=== PATIENT | female | born 1985 | race Caucasian/White ===

== ENCOUNTER 2016-11-27 21:41 | Emergency (ER) ==
[2016-11-27 21:50] VITALS: BP 121/90; TEMP 98.8; BMI 17.9
[2016-11-27] MEDS ORDERED: ZOFRAN 4 MG/2 ML IVP STA (21:53)
[2016-11-27] MEDS ORDERED: SODIUM CHLORIDE 1,000 ML IV STA (21:53)
[2016-11-27] MEDS ORDERED: MORPHINE 2 MG/ML SYRINGE IVP STA (21:54)
[2016-11-27 22:08] LABS: BASOPHILS # (AUTO) 0.1 K/uL (0-0.2); BASOPHILS % (AUTO) 0.7 % (0.0-3.0); EOSINOPHILS % (AUTO) 0.3 % (0.0-7.0); HEMATOCRIT 39.9 % (37.0-47.0); HEMOGLOBIN 14.4 g/dl (12.0-16.0); IMMATURE GRANULOCYTE % (AUTO) 0.5 % (0.0-5.0); LYMPHOCYTES # (AUTO) 2.7 K/uL (0.60-3.4); LYMPHOCYTES % (AUTO) 36.2 (10.0-50.0); MEAN CORPUSCULAR HEMOGLOBIN 44.2 pg (27.0-31.0); MEAN CORPUSCULAR HGB CONC 36.1 (31.8-35.4); MEAN CORPUSCULAR VOLUME 122.4 fl (81.0-99.0); MONOCYTES # (AUTO) 0.4 K/uL (0.4-2.0); MONOCYTES % (AUTO) 5.6 (0-10); NEUTROPHILS # (AUTO) 4.3 K/ul (2.0-6.9); NEUTROPHILS % (AUTO) 56.7; PLATELET COUNT 238 10^3/uL (140-440); RED BLOOD COUNT 3.26 10^6/ul (4.20-5.40); WHITE BLOOD COUNT 7.49 K/ul (4.6-10.2)
[2016-11-27 22:36] LABS: ALANINE AMINOTRANSFERASE 14 U/L (12-78); ALBUMIN 4.8 g/dL (3.4-5.0); ALBUMIN/GLOBULIN RATIO 1.37; ALKALINE PHOSPHATASE 58 U/L (42-98); AMYLASE 57 U/L (25-115); ANION GAP 21.2; ASPARTATE AMINO TRANSFERASE 34 U/L (15-37); BILIRUBIN,TOTAL 1.61 mg/dL (0.00-1.20); BLOOD UREA NITROGEN 21 mg/dL (7-18); BUN/CREATININE RATIO 19.62; CALCIUM 10.1 mg/dL (8.2-10.2); CARBON DIOXIDE 27 mmol/L (21-32); CHLORIDE 97 mmol/L (98-107); CREATINE KINASE 57 U/L; CREATININE 1.07 mg/dL (0.60-1.30); GLUCOSE 87 mg/dL (70-110); LIPASE 64 U/L (8-78); POTASSIUM 5.2 mmol/L (3.5-5.10); SODIUM 140 mmol/L (136-145); TOTAL PROTEIN 8.3 g/dL (6.4-8.2)
[2016-11-27 22:39] LABS: FLU INTERNAL QC INTERNAL QC VALID; RAPID FLU A NEGATIVE (NEGATIVE); RAPID FLU B NEGATIVE (NEGATIVE)
[2016-11-27 22:40] LABS: ERYTHROCYTE SEDIMENTATION RATE 11 mm/hr (0-20); ESR INTERNAL QC INTERNAL QC VALID; SERUM PREGNANCY INTERNAL QC INTERNAL QC VALID
[2016-11-27 23:16] LABS: BILIRUBIN,URINE 3+ (NEGATIVE); KETONES,URINE 3+ (NEGATIVE); LEUKOCYTE ESTERASE ,URINE Negative (NEGATIVE); NITRITE,URINE Negative (NEGATIVE); PH,URINE 5.5 (5-9); PROTEIN,URINE 1+ (NEGATIVE); URINE, BLOOD Trace-intact (NEGATIVE)
--- NOTE | 2016-11-27 23:18 | CT ---
EXAM: CT of the abdomen and pelvis without IV contrast. HISTORY: Abdominal pain and vomiting. PROCEDURE: Contiguous axial CT images of the abdomen and pelvis without contrast with coronal and s agittal reformats. FINDINGS: The liver, gallbladder, pancreas, spleen and adrenal glands are normal in appearance. Th ere is a fluid density cyst in the right kidney. There is a 2 mm nonobstructive calcification in th e left kidney. The abdominal aorta is normal in appearance. The appendix is not visualized. There is a nonspecific bowel gas pattern. No bowel obstruction. No free fluid or free air in the abdomen or pelvis. The bladder is minimally filled with no abnormality identified. Uterus is unremarkable . The bony structures and soft tissues are unremarkable. Impression: Nonspecific nonobstructive bowel gas pattern. Nonobstructive left nephrolithiasis. Simple right renal cyst.
[2016-11-27 23:21] LABS: ADD URINE MICROSCOPIC YES; BACTERIA,URINE TRACE (NOT PRESENT)
[2016-11-28] MEDS ORDERED: DILAUDID 1 MG/ML SYRINGE IVP STA (01:37)
[2016-11-28] MEDS ORDERED: SODIUM CHLORIDE 1,000 ML IV STA ×2 (01:37→01:43)
--- NOTE | 2016-11-28 02:58 | ED.PDOC ---
[id number]: i m hurting and throwijg iup Time Seen by Physician: 21:45 Information Source: Patient Exam Limitations: No limitations Primary Care Provider: TERRY GAYTAN Nursing and Triage Documentation Reviewed and Agree: Yes GI Complaint Exam - Abdominal Pain Complaint/Exam Onset: Gradual Duration: 4 weeks Symptoms Are: Still present Timing: Intermittent Initial Severity: Mild Current Severity: Moderate Location of Pain: Discrete Character: Reports: Dull, Aching Aggravating: Reports: None Alleviating: Reports: Spontaneous resolution Associated Signs and Symptoms: Reports: Nausea, Vomiting Patient Rh Status: Unknown Abdominal Findings: Present: None Differential Diagnoses: Constipation, Diverticulitis, Gastroenteritis, Pancreatitis Quality Indicator For Non-Traumatic Chest Pain/Syncope: EKG Performed Review of Systems - Review Of Systems Constitutional: Reports: No symptoms Eyes: Reports: No symptoms Ears, Nose, Mouth, Throat: Reports: No symptoms Respiratory: Reports: No symptoms Cardiac: Reports: No symptoms GI: Reports: Abdominal pain, Nausea, Vomiting : Reports: No symptoms Musculoskeletal: Reports: No symptoms Skin: Reports: No symptoms Neurological: Reports: No symptoms Endocrine: Reports: No symptoms Hematologic/Lymphatic: Reports: No symptoms All Other Systems: Reviewed and Negative Past Medical History - Past Medical History 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) Endocrine: Reports: None Cardiovascular: Reports: None Respiratory: Reports: None Hematological: Reports: None Gastrointestinal: Reports: None Genitourinary: Reports: None Neuro/Psych: Reports: None Musculoskeletal: Reports: None Cancer: Reports: None Last Menstrual Period: UNKNOWN - Surgical History General Surgical History: Reports: Unknown - Family History Family History: Reports: Unknown - Social History Smoking Status: Never smoker Hx Substance Use: No Alcohol Screening: None - Immunizations Tetanus Shot up to Date: No Physical Exam - Physical Exam Appearance: Well-appearing, No pain distress, Well-nourished Pain Distress: Mild Eyes: SHA, EOMI, Conjunctiva clear ENT: Ears normal, Nose normal, Oropharynx normal Neck: Supple Respiratory: Airway patent, Breath sounds clear, Breath sounds equal, Respirations nonlabored Cardiovascular: RRR, Pulses normal, No rub, No murmur GI/: Soft, Tender Musculoskeletal: Normal strength, ROM intact, No edema, No calf tenderness Skin: Warm, Dry, Normal color Neurological: Sensation intact, Motor intact, Reflexes intact, Cranial nerves intact, Alert, Oriented Psychiatric: Affect appropriate, Mood appropriate Interpretation - Radiology Interpretation Radiology Interpretation By: Radiologist Radiology Results: Negative Exam Interpreted: CT Scan Re-Evaluation - Re-Evaluation Time of Re-Evaluation: 02:58 Status: Improved Vital Signs Stable: Yes Pain Level: 0 Appearance: NAD Lungs: Clear Skin: Warm and Dry Neuro: Alert and Oriented X3 CV: RRR Critical Care Note - Critical Care Note Total Time (mins): 0 Course - Course Hematology/Chemistry: 11/27/16 22:02 11/27/16 22:02 Orders, Labs, Meds: Lab Review 11/27/16 11/27/16 11/27/16 22:02 22:10 23:10 WBC 7.49 RBC 3.26 L Hgb 14.4 Hct 39.9 MCV 122.4 H MCH 44.2 H MCHC 36.1 H RDW Coeff of Estephania 13.1 Plt Count 238 Immature Gran % (Auto) 0.5 Neut % (Auto) 56.7 Lymph % (Auto) 36.2 [place] % (Auto) 5.6 Eos % (Auto) 0.3 Baso % (Auto) 0.7 Immature Gran # (Auto) 0.0 Neut # 4.3 Lymph # 2.7 [place] # 0.4 Eos # 0.0 Baso # 0.1 ESR 11 D-Dimer 0.28 Sodium 140 Potassium 5.2 H Chloride 97 L Carbon Dioxide 27 Anion Gap 21.2 BUN 21 H Creatinine 1.07 Estimated GFR (MDRD) 61.00 BUN/Creatinine Ratio 19.62 Glucose 87 Calcium 10.1 Total Bilirubin 1.61 H AST 34 ALT 14 Alkaline Phosphatase 58 Total Creatine Kinase 57 Troponin I < 0.0100 Total Protein 8.3 H Albumin 4.8 Globulin 3.5 Albumin/Globulin Ratio 1.37 Amylase 57 Lipase 64 Serum , Qual Negative Urine Color Yellow Urine Clarity Slightly Urine pH 5.5 Ur Specific Lohn 1.025 Urine Protein 1+ Urine Glucose (UA) Negative Urine Ketones 3+ Urine Blood Trace-intact Urine Nitrite Negative Urine Bilirubin 3+ Urine Urobilinogen 1.0 Ur Leukocyte Esterase Negative Urine Microscopic RBC 2-5 Urine Microscopic WBC 2-5 Ur Squamous Epith Cells 5-10 Urine Bacteria Trace Urine Mucus 1+ Influenza A (Rapid) Negative Influenza B (Rapid) Negative Orders Category Date Time Status EKG-(ED ONLY) Stat CARDIO 11/27/16 21:52 Completed IV [ED IV/MEDIPORT/POWERPORT] .ONCE EMERGENCY 11/27/16 21:53 Active AMYLASE Stat LAB 11/27/16 22:02 Completed CBC W/ AUTO DIFF Stat LAB 11/27/16 22:02 Completed COMPREHENSIVE METABOLIC PANEL Stat LAB 11/27/16 22:02 Completed CREATINE KINASE Stat LAB 11/27/16 22:02 Completed D-DIMER Stat LAB 11/27/16 22:02 Completed ESR Stat LAB 11/27/16 22:02 Completed LIPASE Stat LAB 11/27/16 22:02 Completed MOLECULAR GROUP A STREP Stat LAB 11/27/16 22:10 Completed RAPID FLU A/B Stat LAB 11/27/16 22:10 Completed SERUM Stat LAB 11/27/16 22:02 Completed STREP SCREEN Stat LAB 11/27/16 22:10 Completed TROPONIN I Stat LAB 11/27/16 22:02 Completed URINALYSIS C & S IF INDICATED Stat LAB 11/27/16 23:10 Completed 0.9 % Sodium Chloride [Saline Flush] MEDS 11/27/16 21:53 Discontinued 1 syr IVF PRN PRN Hydromorphone HCl [Dilaudid 1 mg/ml Syringe] MEDS 11/28/16 01:37 Discontinued 0.5 mg IVP ONCE STA Morphine Sulfate [Morphine 2 mg/ml Syringe] MEDS 11/27/16 21:54 Discontinued 2 mg IVP ONCE STA Ondansetron HCl/Pf [Zofran 4 mg/2 ml] MEDS 11/27/16 21:53 Discontinued 4 mg IVP ONCE STA Sodium Chloride 0.9% [Sodium Chloride] 1,000 ml MEDS 11/28/16 01:43 Discontinued IV 100 mls/hr Sodium Chloride 0.9% [Sodium Chloride] 1,000 ml MEDS 11/27/16 21:[address] ABDOMEN/PELVIS WO CONTRAST Stat RADS 11/27/16 21:54 Completed Medications Discontinued Medications Generic Name Dose Route Start Last Admin Trade Name Freq PRN Reason Stop Dose Admin Hydromorphone HCl 0.5 mg 11/28/16 01:37 11/28/16 01:46 Dilaudid 1 Mg/Ml Syringe IVP 11/28/16 01:38 0.5 mg ONCE STA Administration Sodium Chloride 1,000 mls @ 1,000 mls/hr 11/27/16 21:53 11/27/16 22:06 Sodium Chloride IV 11/27/16 22:52 1,000 mls/hr BOLUS STA Administration Sodium Chloride 1,000 mls @ 100 mls/hr 11/28/16 01:43 11/28/16 01:45 Sodium Chloride IV 11/28/16 11:42 100 mls/hr .Q10H STA Administration Morphine Sulfate 2 mg 11/27/16 21:54 11/27/16 22:14 Morphine 2 Mg/Ml Syringe IVP 11/27/16 21:55 2 mg ONCE STA Administration Ondansetron HCl 4 mg 11/27/16 21:53 11/27/16 22:13 Zofran 4 Mg/2 Ml IVP 11/27/16 21:54 4 mg ONCE STA Administration Sodium Chloride 1 syr 11/27/16 21:53 11/28/16 01:51 Saline Flush IVF 1 syr PRN PRN Administration To flush IV Vital Signs: Temp Pulse Resp BP Pulse Ox 11/27/16 21:42 98.8 F 77 18 121/90 97 Departure - Departure Time of Disposition: 02:58 Disposition: HOME SELF-CARE Discharge Problem: Abdominal pain Qualifiers: Abdominal location: epigastric Qualifier Code: (R10.13) Epigastric pain Instructions: Abdominal Pain (ED) Condition: Good Pt referred to PMD for follow-up: Yes Additional Instructions: low fat diet--talk to your pcp tomorrow about gtting gb xrays Allergies/Adverse Reactions: Allergies Sulfa (Sulfonamide Antibiotics) Adverse Reaction (Verified 11/27/16 21:50) Itching Home Medications: Ambulatory Orders Calcium Carbonate/Vitamin D3 [Calcium 600 + Vit D 400 Tablet] 1 each PO DAILY Ferrous Sulfate [Iron] 325 mg PO DAILY PRN 05/13/13 Magnesium 500 mg PO DAILY 05/13/13 Cholecalciferol (Vitamin D3) [Vitamin D] 1,000 unit PO DAILY 06/23/14 Disposition Discussed With: Patient, Family
== END 2016-11-28 03:09 | disposition home or self-care (01) ==
LOC: ED 21:41
DX: R10.13 Epigastric pain (principal); R11.2 Nausea with vomiting, unspecified
CPT/HCPCS: 36415; 80053; 81001; 82150; 82550; 83690; 84484; 84703; 85025; 85379; 85651; 87651; 87804; 87880; 93005; 93010; 96361; 96374; 96375; 99283

== ENCOUNTER 2016-11-29 07:08 | Outpatient (CLI) ==
[2016-11-29 07:34] LABS: BILIRUBIN,URINE Negative (NEGATIVE); KETONES,URINE Trace (NEGATIVE); LEUKOCYTE ESTERASE ,URINE Negative (NEGATIVE); NITRITE,URINE Negative (NEGATIVE); PH,URINE 5.5 (5-9); PROTEIN,URINE Negative (NEGATIVE); URINE, BLOOD 1+ (NEGATIVE)
[2016-11-29 08:17] LABS: ADD URINE MICROSCOPIC YES
--- NOTE | 2016-11-29 08:28 | US ---
EXAM: ULTRASOUND ABDOMEN LIMITED HISTORY: Abdominal pain FINDINGS: Ultrasound abdomen, limited. Liver size measured 10.2 cm, within normal limits. The live r parenchyma demonstrated normal sonographic appearance without evidence of intrahepatic biliary dil atation or focal lesion. Patent and hepatopedal portal vein. A gallbladder is present. No evidence of gallbladder stones or sludge. Gallbladder wall thickness is normal at 0.29 cm. Common bile duct was not seen. Visualized pancreas within normal limits. No ascites. IMPRESSION: Common bile duct not identified. No gross gallbladder pathology.
== END 2016-11-29 07:09 | disposition home or self-care (01) ==
LOC: RAD 07:08
PROVIDERS: ATTEND Nurse Practitioner Family
DX: R10.9 Unspecified abdominal pain (principal); R11.2 Nausea with vomiting, unspecified
CPT/HCPCS: 81001

== ENCOUNTER 2017-03-04 15:55 | Inpatient (IN) ==
[2017-03-04] MEDS ORDERED: ZOFRAN 4 MG/2 ML IM STA (16:41)
[2017-03-04] MEDS ORDERED: DEMEROL 25 MG/ML SYRINGE IM STA (16:41)
[2017-03-04 16:55] LABS: BASOPHILS # (AUTO) 0.1 K/uL (0-0.2); BASOPHILS % (AUTO) 1.1 % (0.0-3.0); EOSINOPHILS # (AUTO) 0.1 K/ul (0.0-0.7); EOSINOPHILS % (AUTO) 1.7 % (0.0-7.0); HEMATOCRIT 38.4 % (37.0-47.0); HEMOGLOBIN 13.5 g/dl (12.0-16.0); IMMATURE GRANULOCYTE % (AUTO) 0.5 % (0.0-5.0); LYMPHOCYTES # (AUTO) 1.8 K/uL (0.60-3.4); LYMPHOCYTES % (AUTO) 26.9 (10.0-50.0); MEAN CORPUSCULAR HEMOGLOBIN 42.5 pg (27.0-31.0); MEAN CORPUSCULAR HGB CONC 35.2 (31.8-35.4); MEAN CORPUSCULAR VOLUME 120.8 fl (81.0-99.0); MONOCYTES # (AUTO) 0.3 K/uL (0.4-2.0); MONOCYTES % (AUTO) 4.6 (0-10); NEUTROPHILS # (AUTO) 4.3 K/ul (2.0-6.9); NEUTROPHILS % (AUTO) 65.2; PLATELET COUNT 247 10^3/uL (140-440); RED BLOOD COUNT 3.18 10^6/ul (4.20-5.40); WHITE BLOOD COUNT 6.54 K/ul (4.6-10.2)
[2017-03-04 17:13] LABS: ALBUMIN 4.3 g/dL (3.4-5.0); ALBUMIN/GLOBULIN RATIO 1.34; ANION GAP 19.3; BILIRUBIN,TOTAL 1.68 mg/dL (0.00-1.20); BUN/CREATININE RATIO 14.95; CALCIUM 9.9 mg/dL (8.2-10.2); CREATININE 1.07 mg/dL (0.60-1.30); POTASSIUM 5.3 mmol/L (3.5-5.10); TOTAL PROTEIN 7.5 g/dL (6.4-8.2)
--- NOTE | 2017-03-04 17:23 | CT ---
EXAM: CT abdomen pelvis without contrast HISTORY: Abdominal pain COMPARISON: 11/27/2016 TECHNIQUE: CT abdomen pelvis performed without intravenous contrast. Coronal and sagittal reformat callie images obtained. FINDINGS: Lung bases clear. No free air. No acute abnormalities of the bones. Evaluation organ p arenchyma limited without contrast. Heart normal in size. Liver appears normal. Gallbladder appea rs normal. Pancreas appears normal. Spleen appears normal. Adrenals appear normal. Simple right renal cyst. There is a 2 mm nonobstructing left renal calculus. No hydronephrosis. No calculi vis ualized in normal course of the ureters. Bladder unremarkable. Aorta normal in caliber. No lympha denopathy or ascites identified. Nonspecific nonobstructive bowel gas pattern with scattered fluid- filled loops of bowel. 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 Uterus unremarkable. Appendix not visualized. No i nflammatory stranding identified in the abdomen pelvis. IMPRESSION: 1. Nonspecific nonobstructive bowel gas pattern. Correlate for enteritis. 2. Congenital malrotation of the bowel. 3. Left nephrolithiasis.
--- NOTE | 2017-03-04 17:26 | ED.PDOC ---
General ED Provider: Dr. RUIZ SNOWDEN Chief Complaint: Nausea/Vomiting Stated Complaint: Abdominal pain, upper part, not able to keep anything down, also has diarrhea, she is discharged from the [facility] 1 wk, there for colitis. Time Seen by Physician: 17:24 Mode of Arrival: Walk-In Information Source: Patient Primary Care Provider: RUIZ SNOWDEN[facility] Nursing and Triage Documentation Reviewed and Agree: Yes GI Complaint Exam - Abdominal Pain Complaint/Exam Onset: Gradual Symptoms Are: Still present Timing: Constant Initial Severity: Severe Current Severity: Severe Location of Pain: Epigastric Character: Reports: Aching, Throbbing Aggravating: Reports: Movement, Food Alleviating: Reports: None Associated Signs and Symptoms: Reports: Nausea, Vomiting, Diarrhea. Denies: Diaphoresis, Fever, Cough, Chest pain, Dizziness, Back pain, Constipation, Blood in stool, Dysuria, Urinary frequency, Decreased urine output, Decreased appetite, Vaginal bleeding, Vaginal discharge, Sore throat, Decreased activity Related History: Reports: Similar episode AAA Risk Factors: Reports: None Cardiac Risk Factors: Reports: None Ectopic Risk Factors: Reports: None Ovarian Torsion Risk Factors: Reports: None Surgical Obstruction Risk Factors: Reports: None Related Surgical History: Reports: None Abdominal Findings: Present: Abdominal distention. Absent: Pulsatile mass, Unequal femoral pulses, Rebound tenderness, CVA Tenderness Differential Diagnoses: Diverticulitis, Gastroenteritis, Pancreatitis, PUD Review of Systems - Review Of Systems Constitutional: Reports: Malaise, Weakness Eyes: Reports: No symptoms Ears, Nose, Mouth, Throat: Reports: No symptoms Respiratory: Reports: No symptoms Cardiac: Reports: No symptoms GI: Reports: Abdominal pain : Reports: No symptoms Musculoskeletal: Reports: No symptoms Skin: Reports: No symptoms Neurological: Reports: No symptoms Endocrine: Reports: No symptoms Hematologic/Lymphatic: Reports: No symptoms All Other Systems: Reviewed and Negative Past Medical History - Past Medical History 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) Endocrine: Reports: None Cardiovascular: Reports: None Respiratory: Reports: None Hematological: Reports: None Gastrointestinal: Reports: Other (short bowel syndrome) Genitourinary: Reports: None 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) Musculoskeletal: Reports: None Cancer: Reports: None Last Menstrual Period: "i don't have them" - Surgical History General Surgical History: Reports: Other (colon resection, Omphalocele surgery) - Family History Family History: Reports: Unknown - Social History Smoking Status: Never smoker Hx Substance Use: No Alcohol Screening: None Physical Exam - Physical Exam Appearance: Ill-appearing, Thin Ill-appearing: Moderate Pain Distress: Severe Eyes: SHA, EOMI ENT: Ears normal, Nose normal, Oropharynx normal Respiratory: Airway patent, Breath sounds clear, Breath sounds equal, Respirations nonlabored Cardiovascular: RRR, Pulses normal, No rub, No murmur GI/: Tender, Bowel sounds hypoactive Musculoskeletal: Normal strength, ROM intact, No edema, No calf tenderness Skin: Warm, Dry, Normal color Neurological: Sensation intact, Motor intact, Reflexes intact, Cranial nerves intact, Alert, Oriented Psychiatric: Affect appropriate, Mood appropriate Interpretation - Radiology Interpretation Radiology Interpretation By: Radiologist Radiology Results: Positive Exam Interpreted: CT Scan Re-Evaluation - Re-Evaluation Time of Re-Evaluation: 17:30 Status: Unchanged (severe pain) Critical Care Note - Critical Care Note Total Time (mins): 0 Course - Course Hematology/Chemistry: 03/04/17 16:45 03/04/17 16:45 Orders, Labs, Meds: Lab Review 03/04/17 16:45 WBC 6.54 RBC 3.18 L Hgb 13.5 Hct 38.4 MCV 120.8 H MCH 42.5 H MCHC 35.2 RDW Coeff of Estephania 15.7 H Plt Count 247 Immature Gran % (Auto) 0.5 Neut % (Auto) 65.2 Lymph % (Auto) 26.9 [place] % (Auto) 4.6 Eos % (Auto) 1.7 Baso % (Auto) 1.1 Immature Gran # (Auto) 0.0 Neut # 4.3 Lymph # 1.8 [place] # 0.3 L Eos # 0.1 Baso # 0.1 Sodium 135 L Potassium 5.3 H Chloride 96 L Carbon Dioxide 25 Anion Gap 19.3 BUN 16 Creatinine 1.07 Estimated GFR (MDRD) 61.00 BUN/Creatinine Ratio 14.95 Glucose 67 L Calcium 9.9 Total Bilirubin 1.68 H AST 24 ALT 14 Alkaline Phosphatase 61 Total Protein 7.5 Albumin 4.3 Globulin 3.2 Albumin/Globulin Ratio 1.34 Amylase 56 Lipase 34 Orders Category Date Time Status ACCUCHECK (ED) [ED ACCUCHECK ASSESSMENT] .ONCE EMERGENCY 03/04/17 17:24 Active AMYLASE Stat LAB 03/04/17 16:45 Completed CBC W/ AUTO DIFF Stat LAB 03/04/17 16:45 Completed COMPREHENSIVE METABOLIC PANEL Stat LAB 03/04/17 16:45 Completed LIPASE Stat LAB 03/04/17 16:45 Completed Meperidine HCl/Pf [Demerol 25 mg/ml Syringe] MEDS 03/04/17 16:41 Discontinued 25 mg IM ONCE STA Ondansetron HCl/Pf [Zofran 4 mg/2 ml] MEDS 03/04/17 16:41 Discontinued 4 mg IM ONCE STA CT ABDOMEN/PELVIS WO CONTRAST Stat RADS 03/04/17 16:41 Completed Medications Discontinued Medications Generic Name Dose Route Start Last Admin Trade Name Freq PRN Reason Stop Dose Admin Meperidine HCl 25 mg 03/04/17 16:41 03/04/17 16:49 Demerol 25 Mg/Ml Syringe IM 03/04/17 16:42 25 mg ONCE STA Administration Ondansetron HCl 4 mg 03/04/17 16:41 03/04/17 16:51 Zofran 4 Mg/2 Ml IM 03/04/17 16:42 4 mg ONCE STA Administration Vital Signs: Temp Pulse Resp BP Pulse Ox 03/04/17 15:55 99.9 F H 99 H 16 127/91 H 96 Departure - Departure Time of Disposition: 17:46 Disposition: ADMITTED INPATIENT Discharge Problem: Enteritis, Dehydration Instructions: Dehydration (ED) Condition: Stable Pt referred to PMD for follow-up: No Allergies/Adverse Reactions: Allergies Sulfa (Sulfonamide Antibiotics) Adverse Reaction (Verified 03/04/17 16:00) Itching Home Medications: Ambulatory Orders Calcium Carbonate/Vitamin D3 [Calcium 600 + Vit D 400 Tablet] 1 each PO DAILY Ferrous Sulfate [Iron] 325 mg PO DAILY PRN 05/13/13 Magnesium 500 mg PO DAILY 05/13/13 Cholecalciferol (Vitamin D3) [Vitamin D] 1,000 unit PO DAILY 06/23/14 Disposition Discussed With: Patient, Family
[2017-03-04] MEDS ORDERED: DEXTROSE 5%-NS IV SOLUTION 1,000 ML IV STA (17:46)
[2017-03-04] MEDS ORDERED: DEMEROL 25 MG/ML SYRINGE IVP STA (17:46)
[2017-03-04] MEDS ORDERED: GI COCKTAIL PO STA (17:47)
[2017-03-04] MEDS ORDERED: TYLENOL PO PRN (17:47)
[2017-03-04] MEDS ORDERED: SOLU-MEDROL 125 MG IVP STA (17:51)
[2017-03-04 20:01] VITALS: BMI 17.3
[2017-03-04] MEDS ORDERED: PROTONIX IV IVP SCH (21:00)
[2017-03-04] MEDS: CARAFATE ONE ×2 (21:04→21:05)
[2017-03-04] MEDS: CARAFATE PO SCH (21:06)
[2017-03-04] MEDS: ZOSYN 2.25 GM 2.25 GM in SODIUM CHLORIDE 100 ML IV SCH (21:08)
[2017-03-04] MEDS: ZOFRAN 4 MG/2 ML IVP PRN (23:32)
[2017-03-04] MEDS: DEMEROL 25 MG/ML SYRINGE IVP PRN (23:33)
[2017-03-05] MEDS: ZOSYN 2.25 GM 2.25 GM in SODIUM CHLORIDE 100 ML IV SCH ×2 (00:48→05:00)
[2017-03-05] MEDS: CARAFATE ONE ×2 (04:59→05:40)
[2017-03-05] MEDS: DEMEROL 25 MG/ML SYRINGE IVP PRN (05:38)
[2017-03-05] MEDS: ZOFRAN 4 MG/2 ML IVP PRN (05:39)
[2017-03-05] MEDS: CARAFATE PO SCH (05:40)
[2017-03-05 05:44] VITALS: BP 106/76; TEMP 96
[2017-03-05 06:08] LABS: BASOPHILS % (AUTO) 0.4 % (0.0-3.0); HEMOGLOBIN 12.5 g/dl (12.0-16.0); IMMATURE GRANULOCYTE % (AUTO) 1.1 % (0.0-5.0); LYMPHOCYTES # (AUTO) 0.9 K/uL (0.60-3.4); LYMPHOCYTES % (AUTO) 31.6 (10.0-50.0); MEAN CORPUSCULAR HEMOGLOBIN 42.7 pg (27.0-31.0); MEAN CORPUSCULAR HGB CONC 34.7 (31.8-35.4); MEAN CORPUSCULAR VOLUME 122.9 fl (81.0-99.0); MONOCYTES % (AUTO) 1.5 (0-10); NEUTROPHILS # (AUTO) 1.8 K/ul (2.0-6.9); NEUTROPHILS % (AUTO) 65.4; PLATELET COUNT 259 10^3/uL (140-440); RED BLOOD COUNT 2.93 10^6/ul (4.20-5.40); WHITE BLOOD COUNT 2.75 K/ul (4.6-10.2)
[2017-03-05 06:26] LABS: ALBUMIN 4.2 g/dL (3.4-5.0); ALBUMIN/GLOBULIN RATIO 1.35; ANION GAP 18.3; BILIRUBIN,TOTAL 1.77 mg/dL (0.00-1.20); BUN/CREATININE RATIO 15.04; CALCIUM 9.4 mg/dL (8.2-10.2); CREATININE 1.13 mg/dL (0.60-1.30); POTASSIUM 4.3 mmol/L (3.5-5.10); TOTAL PROTEIN 7.3 g/dL (6.4-8.2)
[2017-03-05] MEDS ORDERED: DEXTROSE 5%-NS IV SOLUTION 1,000 ML IV SCH (08:00)
[2017-03-05] MEDS ORDERED: LOVENOX SUBCUT SCH (09:00)
--- NOTE | 2017-03-07 08:42 | AMA ---
HISTORY: After the rounds today the patient immediately told the nurse that she wants to leave AMA because she wants the Dilaudid and we are not giving the pain medication and she insisted that she has to leave and she wants to go to the [place]. Trying to explain in review of the colitis and enteritis and not able to keep anything. This is not a good idea to leave against the medical advise but the patient insisted and left against AMA and signed the papers. Advised that if the patient isn't feeling good and changes her mind she is always welcomes back to the Emergency Room. VICTOR MANUEL
--- NOTE | 2017-03-07 08:56 | PN ---
DATE OF SERVICE: 03/05/17 SUBJECTIVE: The patient was admitted with the acute colitis and enteritis. The patient was constantly getting the pain medications. The patient's pain is still present and wanting more pain medications. REVIEW OF SYSTEMS: CONSTITUTIONAL: No fever, no chills. HEENT: Normal. ENDOCRINE: No weight gain, no weight loss. CVS: No angina symptoms. No CHF symptoms. No palpitations. No atypical chest pain for CAD. No shortness of breath. No PND, no orthopnea. RESPIRATORY: No cough, no hemoptysis. GI: No nausea, no vomiting. No abdominal pain. : No hematuria. No polyuria. MUSCULOSKELETAL:. No joint swelling. PSYCHIATRIC: Not anxious. No depression. No suicidal thoughts. No homicidal thoughts. SKIN: Intact. No rash. PHYSICAL EXAMINATION: V/S: Blood pressure 108/79, pulse 52, respiratory rate 18 and temperature 98.5. HEENT: Normocephalic, atraumatic. Mucosa dry. Pallor positive. No icterus. NECK: Supple. No JVD, no carotid bruit. No lymphadenopathy. LUNGS: Clear to auscultation. No rales or rhonchi. HEART: S1, S2 normal. No S3. No murmur, gallop or regurgitation. ABDOMEN: Soft, tender all over. Bowel sounds sluggish. No rigidity. No rebound or guarding. No CVA tenderness. EXTREMITIES: No clubbing, cyanosis or pedal edema. MUSCULOSKELETAL: No joint swelling. NEUROLOGIC: Awake, alert, oriented times three. No focal deficit. LYMPHATIC: No lymph nodes palpable. SKIN: Intact. LABS: WBC 2.75, hgb 12.5, hct 36.0, plt count 259, sodium 139, potassium 4.3, chloride 19, bicarb 23, BUN 17, creatinine 1.13 ASSESSMENT: 1. Enteritis 2. Colitis 3. Dehydration 4. Hyperglycemia 5. History of multiple abdominal surgeries 6. Gastroschisis 7. Pituitary dwarfism PLAN: 1. Continue the Demerol 25mg Q 6 hours PRN 2. Zofran 4 hours PRN 3. Clear liquid diet 4. Advise diet as tolerated. TIME SPENT: More than 30 minutes MTDD
--- NOTE | 2017-03-07 09:07 | PN ---
DATE OF SERVICE: 03/04/17 SUBJECTIVE: The patient was admitted from the ER by me. She was admitted for acute enteritis and colitis and severe abdominal pain not able to keep anything down. The patient is still having the pain 10/10 and wanting some pain medications, not able to keep anything. REVIEW OF SYSTEMS: CONSTITUTIONAL: No fever, no chills. HEENT: Normal. ENDOCRINE: No weight gain, no weight loss. CVS: No angina symptoms. No CHF symptoms. No palpitations. No atypical chest pain for CAD. No shortness of breath. No PND, no orthopnea. RESPIRATORY: No cough, no hemoptysis. GI: No nausea, no vomiting. No abdominal pain. : No hematuria. No polyuria. MUSCULOSKELETAL:. No joint swelling. PSYCHIATRIC: Not anxious. No depression. No suicidal thoughts. No homicidal thoughts. SKIN: Intact. No rash. PHYSICAL EXAMINATION: V/S: Blood pressure 127/91, respiratory rate 16, heart rate 99 and temperature 99.9. GENERAL: Cachetic lady, distressed patient laying in the bed. 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 HEENT: Normocephalic, atraumatic. Mucosa dry. Pallor positive. NECK: Supple. No JVD, no carotid bruit. No lymphadenopathy. LUNGS: Clear to auscultation. No rales or rhonchi. HEART: S1, S2 normal. No S3. No murmur, gallop or regurgitation. ABDOMEN: Soft, tender all over. Bowel sounds sluggish bowel movements. No rigidity. No rebound or guarding. No CVA tenderness. EXTREMITIES: No clubbing, cyanosis or pedal edema. MUSCULOSKELETAL: No joint swelling. NEUROLOGIC: Awake, alert, oriented times three. No focal deficit. LYMPHATIC: No lymph nodes palpable. SKIN: Intact. LABS: WBC 6.54, hgb 13.5, hct 38.4, plt count 247, sodium 135, potassium 4.3, chloride 96, bicarb 25, BUN 16, creatinine 1.07. ASSESSMENT: 1. Enteritis 2. Colitis 3. Intractable abdominal pain 4. Dehydration 5. Hyperkalemia 6. Pituitary dwarfism 7. Multiple abdominal surgeries 8. Migraines PLAN: 1. Start the patient on Demerol 2. Continue IV fluids 3. Demerol 25mg Q 6 hours 4. Zofran 4mg 6 hours 5. I&O's Will follow the patient in daily rounds. TIME SPENT: More than 30 minutes VICTOR MANUEL
== END 2017-03-05 09:41 | disposition left against medical advice (07) | DRG 391 ==
LOC: ED 15:55 → MEDSURG B 17:53
PROVIDERS: ADMIT Emergency Medicine; ATTEND Emergency Medicine
DX: K52.9 Noninfective gastroenteritis and colitis, unspecified (principal); Q79.3 Gastroschisis; E23.0 Hypopituitarism; E86.0 Dehydration; R10.9 Unspecified abdominal pain; R73.9 Hyperglycemia, unspecified; G43.909 Migraine, unspecified, not intractable, without status migrainosus; Z98.890 Other specified postprocedural states
CPT/HCPCS: 36415; 80053; 82150; 82962; 83690; 85025; 96372; 96374; 96375; 97802; 99284

== ENCOUNTER 2017-03-23 15:02 | Outpatient (CLI) ==
--- NOTE | 2017-03-23 15:39 | DI ---
EXAM: Chest two view, frontal and lateral views. HISTORY: Respiratory crackles. COMPARISON: None available. FINDINGS: The heart size is normal. There is no pulmonary vascular congestion. The lungs are leonila r. No pleural effusion or pneumothorax is seen. No acute osseous abnormality identified. IMPRESSION: No acute cardiopulmonary process.
== END 2017-03-23 15:03 | disposition home or self-care (01) ==
LOC: RAD 15:02
PROVIDERS: ATTEND Physician Assistant
DX: R09.89 Other specified symptoms and signs involving the circulatory and respiratory systems (principal)

== ENCOUNTER 2017-04-06 09:46 | Outpatient (CLI) ==
[2017-04-06 10:21] LABS: BASOPHILS # (AUTO) 0.1 K/uL (0-0.2); BASOPHILS % (AUTO) 0.8 % (0.0-3.0); EOSINOPHILS # (AUTO) 0.1 K/ul (0.0-0.7); EOSINOPHILS % (AUTO) 1.3 % (0.0-7.0); IMMATURE GRANULOCYTE % (AUTO) 0.3 % (0.0-5.0); LYMPHOCYTES # (AUTO) 2.6 K/uL (0.60-3.4); LYMPHOCYTES % (AUTO) 29.4 (10.0-50.0); MEAN CORPUSCULAR HEMOGLOBIN 37.6 pg (27.0-31.0); MEAN CORPUSCULAR HGB CONC 34.2 (31.8-35.4); MEAN CORPUSCULAR VOLUME 109.8 fl (81.0-99.0); MONOCYTES # (AUTO) 0.5 K/uL (0.4-2.0); NEUTROPHILS # (AUTO) 5.4 K/ul (2.0-6.9); NEUTROPHILS % (AUTO) 62.2; PLATELET COUNT 276 10^3/uL (140-440); RED BLOOD COUNT 3.46 10^6/ul (4.20-5.40); WHITE BLOOD COUNT 8.66 K/ul (4.6-10.2)
[2017-04-06 11:11] LABS: ALBUMIN/GLOBULIN RATIO 1.18; ANION GAP 16.6; BILIRUBIN,TOTAL 0.51 mg/dL (0.00-1.20); BUN/CREATININE RATIO 21.62; CALCIUM 9.6 mg/dL (8.2-10.2); CREATININE 0.74 mg/dL (0.60-1.30); POTASSIUM 4.6 mmol/L (3.5-5.10); TOTAL PROTEIN 7.4 g/dL (6.4-8.2)
== END 2017-04-06 09:47 | disposition home or self-care (01) ==
LOC: LAB 09:46
PROVIDERS: ATTEND Physician Assistant
DX: E23.0 Hypopituitarism (principal); K52.9 Noninfective gastroenteritis and colitis, unspecified; R11.2 Nausea with vomiting, unspecified; Z87.19 Personal history of other diseases of the digestive system; Z87.738 Personal history of other specified (corrected) congenital malformations of digestive system; Z90.49 Acquired absence of other specified parts of digestive tract
CPT/HCPCS: 36415; 80053; 82150; 82607; 82941; 83516; 83540; 83550; 83690; 84443; 85025

== ENCOUNTER 2017-04-07 12:04 | Outpatient (CLI) ==
[2017-04-07 13:36] LABS: H. PYLORI STOOL ANTIGEN NEGATIVE (NEGATIVE); H.PYLORI STOOL AG INTERNAL QC INTERNAL QC VALID
== END 2017-04-07 12:05 | disposition home or self-care (01) ==
LOC: LAB 12:04
PROVIDERS: ATTEND Physician Assistant
DX: E23.0 Hypopituitarism (principal); K52.9 Noninfective gastroenteritis and colitis, unspecified; R11.2 Nausea with vomiting, unspecified; Z87.19 Personal history of other diseases of the digestive system; Z87.738 Personal history of other specified (corrected) congenital malformations of digestive system; Z90.49 Acquired absence of other specified parts of digestive tract
CPT/HCPCS: 36415; 81050; 83497; 87015; 87045; 87046; 87338; 87493; 87899; 89055

== ENCOUNTER 2017-04-23 14:33 | Emergency (ER) ==
[2017-04-23 14:41] VITALS: BP 133/92; TEMP 98.4; BMI 16.1
--- NOTE | 2017-04-23 15:23 | ED.PDOC ---
General ED Provider: Dr. LAYNE SANZ Chief Complaint: Abdominal Pain Stated Complaint: abdominal pain Time Seen by Physician: 14:37 (pt was seen at [place] and the i day prior to that at [facility]) Mode of Arrival: Walk-In Information Source: Patient Exam Limitations: No limitations Primary Care Provider: PALOMO SINCLAIR Referred to ED by: Other (THIS IS A CHRONIC COMPLAINT NEGATIVE TRAUMA) Nursing and Triage Documentation Reviewed and Agree: Yes GI Complaint Exam - Abdominal Pain Complaint/Exam Onset: Gradual Duration: SEVERAL MONTHS OFF AND ON SEEN AT 2 OTHER HOSPITALS PRIOR TO PRESENT VISIT Symptoms Are: Still present Timing: Constant Initial Severity: Moderate Current Severity: Moderate Location of Pain: Diffuse, Epigastric Radiates To: Denies: Chest, Back, Flank Character: Reports: Cramping Aggravating: Reports: None Alleviating: Reports: None Associated Signs and Symptoms: Denies: Diaphoresis, Fever, Cough, Chest pain, Dizziness, Back pain, Constipation, Blood in stool, Dysuria, Urinary frequency, Decreased urine output, Decreased appetite, Vaginal bleeding, Vaginal discharge , Nausea, Vomiting, Diarrhea, Sore throat, Decreased activity Related History: Reports: Similar episode AAA Risk Factors: Reports: None Ectopic Risk Factors: Reports: None Ovarian Torsion Risk Factors: Reports: None Surgical Obstruction Risk Factors: Reports: None Related Surgical History: Reports: None Patient Rh Status: Unknown Abdominal Findings: Present: None Differential Diagnoses: Appendicitis, Bowel Obstruction, Constipation, Diverticulitis, Gastroenteritis, Renal Colic, Ureteral Stone, Ovarian Cyst, Other (TORSION) Review of Systems - Review Of Systems Constitutional: Reports: No symptoms Eyes: Reports: No symptoms Ears, Nose, Mouth, Throat: Reports: No symptoms Respiratory: Reports: No symptoms Cardiac: Reports: No symptoms GI: Reports: Abdominal pain, Nausea : Reports: No symptoms Musculoskeletal: Reports: No symptoms Skin: Reports: No symptoms Neurological: Reports: No symptoms Endocrine: Reports: No symptoms Hematologic/Lymphatic: Reports: No symptoms All Other Systems: Reviewed and Negative Past Medical History - Past Medical History 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) Endocrine: Reports: None Cardiovascular: Reports: None Respiratory: Reports: None Hematological: Reports: None Gastrointestinal: Reports: Other (short bowel syndrome) Genitourinary: Reports: None 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) Musculoskeletal: Reports: None Cancer: Reports: None Last Menstrual Period: no cycles - Surgical History General Surgical History: Reports: Other (colon resection, Omphalocele surgery) - Family History Family History: Reports: Unknown - Social History Smoking Status: Never smoker Hx Substance Use: No Alcohol Screening: None Physical Exam - Physical Exam Appearance: Well-appearing, No pain distress, Well-nourished Eyes: SHA, EOMI, Conjunctiva clear ENT: Ears normal, Nose normal, Oropharynx normal Respiratory: Airway patent, Breath sounds clear, Breath sounds equal, Respirations nonlabored Cardiovascular: RRR, Pulses normal, No rub, No murmur GI/: Soft, Nontender, No masses, Bowel sounds normal, No Organomegaly Musculoskeletal: Normal strength, ROM intact, No edema, No calf tenderness Skin: Warm, Dry, Normal color Neurological: Sensation intact, Motor intact, Reflexes intact, Cranial nerves intact, Alert, Oriented Psychiatric: Affect appropriate, Mood appropriate Critical Care Note - Critical Care Note Total Time (mins): 0 Course - Course Orders, Labs, Meds: Orders Category Date Time Status AMYLASE Stat LAB 04/23/17 15:06 Ordered CBC W/ AUTO DIFF Stat LAB 04/23/17 15:06 Ordered COMPREHENSIVE METABOLIC PANEL Stat LAB 04/23/17 15:06 Ordered LIPASE Stat LAB 04/23/17 15:06 Ordered SERUM Stat LAB 04/23/17 Ordered URINALYSIS C & S IF INDICATED Stat LAB 04/23/17 15:06 Uncollected CHEST, 2 VIEWS PA & LAT Stat RADS 04/23/17 15:[address] ABDOMEN/PELVIS WO CONTRAST Stat RADS 04/23/17 15:06 Ordered Vital Signs: Temp Pulse Resp BP Pulse Ox 04/23/17 14:35 98.4 F 82 20 133/92 H 97 Departure - Departure Time of Disposition: 15:20 (PT WAS SEEN AT 2 OTHER INSTITUTIONS PRIOR TO THIS VISIT . abdominal exam was entirely wnl, pt requested pain meds but with nurse present i told her that her abdominal exam is WNL and if imaging and blood work is wnl no pain meds would be given, pt became upset left AMA) Disposition: AMA Discharge Problem: Abdominal pain Instructions: Abdominal Pain (ED) Condition: Good Pt referred to PMD for follow-up: No (LEFT AMA DID NOT WAIT) Allergies/Adverse Reactions: Allergies Sulfa (Sulfonamide Antibiotics) Adverse Reaction (Verified 04/23/17 14:41) Itching Home Medications: Ambulatory Orders Calcium Carbonate/Vitamin D3 [Calcium 600 + Vit D 400 Tablet] 1 each PO DAILY Ferrous Sulfate [Iron] 325 mg PO DAILY PRN 05/13/13 Magnesium 500 mg PO DAILY 05/13/13 Cholecalciferol (Vitamin D3) [Vitamin D] 1,000 unit PO DAILY 06/23/14
== END 2017-04-23 15:23 | disposition left against medical advice (07) ==
LOC: ED 14:33
DX: R10.84 Generalized abdominal pain (principal); R11.0 Nausea
CPT/HCPCS: 99284

== ENCOUNTER 2018-11-04 12:05 | Outpatient (CLI) | END 2018-11-04 12:06 | disposition home or self-care (01) | LOC: RHC-LAB 12:05 | PROVIDERS: ATTEND Nurse Practitioner Family | DX: R05 Cough (principal) | CPT/HCPCS: 87502; 87651 ==

== ENCOUNTER 2019-02-14 11:55 | Outpatient (CLI) | END 2019-02-14 11:56 | disposition home or self-care (01) | LOC: RHC-LAB 11:55 | PROVIDERS: ATTEND Nurse Practitioner Family | DX: M79.10 Myalgia, unspecified site (principal); R82.4 Acetonuria | CPT/HCPCS: 36415; 80053; 81001 ==